=== PATIENT | male | born 1965 | race African-American/Black ===

== ENCOUNTER 2023-12-20 15:37 | Inpatient (IN) | payer MEDICAID, OTHER ==
[~2023-12-20] VITALS: Ht 182.9 cm; Wt 76.0 kg
[2023-12-20 16:32] LABS: Hematocrit 38.9 % (41.0-53.0); Hemoglobin 12.9 g/dL (13.5-17.5); Mean Corpuscular Hgb Conc. 33.2 g/dL (32.0-36.0); Mean Corpuscular Volume 81.3 fL (80.0-100.0); Red Blood Cells 4.78 10^6/uL (4.5-5.90); White Blood Cell 2.9 10^3/uL (4.4-10.8)
[2023-12-20 16:37] LABS: Red Cell Distribution Width 21.6 % (11.8-14.3)
[2023-12-20 16:38] LABS: Basophils % (manual) 0 (0.0-2.0); Blast Cells 0; Metamyelocytes % 0; Myelocytes % 0; Promyelocytes % 0; Reactive Lymphocytes 0
[2023-12-20 16:52] LABS: Chloride 106 mmol/L (98-107); Potassium 4.4 mmol/L (3.5-5.1); Sodium 139 mmol/L (136-145)
[2023-12-20 16:53] LABS: Anion Gap 7 (5-15); Calcium 9.8 mg/dL (8.7-10.4); Carbon Dioxide 26 mmol/L (20-30)
[2023-12-20] MEDS: ASPirin 81 mg TAB PO ONE (16:55)
[2023-12-20] MEDS: methylPREDNISolone SOD SUCC 125 MG/2 ML VL IV ONE (16:55)
[2023-12-20 16:58] LABS: BUN/Creatinine Ratio 20.9 (10.0-20.0); Blood Urea Nitrogen 23 mg/dL (9-23); Glucose 86 mg/dL (74-106)
[2023-12-20 19:23] LABS: Anisocytosis Slight; Band Neutrophils % (manual) 1; Eosinophils % (manual) 6 (0-7); Lymphocytes % (manual) 51 (10.0-50.0); Monocytes % (manual) 19 (0-12)
[2023-12-20 19:24] LABS: Large Platelets FEW; Macrocytosis Slight; Ovalocytes FEW; Platelet Estimate Adequa; Target Cell FEW
[2023-12-20] MEDS ORDERED: DOCUSATE SOD 100 MG CAP PO PRN (20:30)
[2023-12-20] MEDS ORDERED: ACETAMINOPHEN 325 MG TAB PO PRN (20:30)
[2023-12-20] MEDS ORDERED: ONDANSETRON HCL 4 MG/2 ML VIAL IV PRN (20:30)
[2023-12-20] MEDS ORDERED: MORPHINE SULFATE INJ 2 MG/ml SYRG IV PRN (22:00)
[2023-12-20] MEDS ORDERED: NITROGLYCERIN 0.4 MG SL TAB SL PRN (22:00)
[2023-12-20 23:45] VITALS: PULSE 72; RESP 18; O2SAT 99
[2023-12-21] MEDS: ATORVASTATIN 20 MG TAB PO SCH (00:12)
[2023-12-21] MEDS: HYDROcodone-ACET 5/325MG TAB PO PRN (00:12)
[2023-12-21] MEDS: methylPREDNISolone SOD SUCC 40 MG/ML VL IV SCH (00:12)
[2023-12-21] MEDS: FAMOTIDINE (10MG/ML) 2ML VL IV SCH (00:12)
[2023-12-21] MEDS: SODIUM CHLORIDE 0.9% 1,000 ML IV SCH (03:16)
[2023-12-21 05:37] LABS: Basophils # (auto) 0 10 ^3/uL (0-0.2); Basophils % (auto) 0.5 % (0.0-2.0); Eosinophils # (auto) 0 10 ^3/uL (0-0.8); Hematocrit 40.8 % (41.0-53.0); Hemoglobin 13.7 g/dL (13.5-17.5); Lymphocytes # (auto) 0.5 10 ^3/uL (0.4-5.4); Lymphocytes % (auto) 15.2 % (10.0-50.0); Mean Corpuscular Hemoglobin 27.4 pg (28.0-32.0); Mean Corpuscular Hgb Conc. 33.4 g/dL (32.0-36.0); Mean Corpuscular Volume 81.9 fL (80.0-100.0); Monocytes # (auto) 0.1 10 ^3/uL (0-1.3); Monocytes % (auto) 1.6 % (0.0-12.0); Neutrophils # (auto) 2.9 10 ^3/uL (1.6-8.6); Neutrophils % (auto) 82.7 % (37.0-80.0); Nucleated Red Blood Cells % 0.3 %; Red Blood Cells 4.99 10^6/uL (4.5-5.90); White Blood Cell 3.5 10^3/uL (4.4-10.8)
[2023-12-21 05:40] LABS: Alanine Aminotransferase 14 U/L (7-40); Albumin 4.1 g/dL (3.2-4.8); Alkaline Phosphatase 106 U/L (46-116); Anion Gap 8 (5-15); Aspartate Aminotransferase 13 U/L (13-40); BUN/Creatinine Ratio 18.8 (10.0-20.0); Blood Urea Nitrogen 24 mg/dL (9-23); Calcium 9.8 mg/dL (8.7-10.4); Carbon Dioxide 22 mmol/L (20-30); Chloride 106 mmol/L (98-107); Glucose 137 mg/dL (74-106); Potassium 4.6 mmol/L (3.5-5.1); Sodium 136 mmol/L (136-145)
[2023-12-21 05:41] LABS: Bilirubin, Total 0.2 mg/dL (0.2-1.0); Total Protein 8.2 g/dL (5.7-8.2)
[2023-12-21 06:02] LABS: Red Cell Distribution Width 21.9 % (11.8-14.3)
[2023-12-21 07:51] LABS: Anisocytosis Slight; Macrocytosis Slight; Ovalocytes FEW; Platelet Estimate Adequate
[2023-12-21 08:12] VITALS: PULSE 70; RESP 16; O2SAT 99
[2023-12-21] MEDS: ASPirin 81 mg TAB PO SCH (10:00)
[2023-12-21 12:21] LABS: CRP High Sensitivity 0.87 mg/dL (<1.0)
[2023-12-21 12:44] LABS: Erythrocyte Sedimentation Rate 25 mm/hr (0-20)
[2023-12-21] MEDS: IBUPROFEN 600 MG TAB PO SCH (15:59)
[2023-12-21] MEDS ORDERED: hydrALAZINE HCL 20 MG/ML VL IV PRN (17:00)
[2023-12-21] MEDS: NIFEdipine ER 30 MG TAB PO SCH (22:47)
[2023-12-22] VITALS (7 sets, daily range): BP systolic 123–137; BP diastolic 78–95; PULSE 68–74; RESP 17–20; TEMP 97.1–98.4; O2SAT 95–100
[2023-12-22 06:59] LABS: Calcium 9.6 mg/dL (8.7-10.4); Chloride 109 mmol/L (98-107); Sodium 139 mmol/L (136-145)
[2023-12-22 07:00] LABS: Anion Gap 8 (5-15); Carbon Dioxide 22 mmol/L (20-30)
[2023-12-22 07:05] LABS: BUN/Creatinine Ratio 19.8 (10.0-20.0); Basophils # (auto) 0 10 ^3/uL (0-0.2); Basophils % (auto) 0.1 % (0.0-2.0); Blood Urea Nitrogen 22 mg/dL (9-23); Eosinophils # (auto) 0 10 ^3/uL (0-0.8); Glucose 112 mg/dL (74-106); Hematocrit 41.1 % (41.0-53.0); Hemoglobin 13.8 g/dL (13.5-17.5); Lymphocytes # (auto) 0.6 10 ^3/uL (0.4-5.4); Mean Corpuscular Hemoglobin 27.5 pg (28.0-32.0); Mean Corpuscular Hgb Conc. 33.6 g/dL (32.0-36.0); Mean Corpuscular Volume 81.7 fL (80.0-100.0); Monocytes # (auto) 0.2 10 ^3/uL (0-1.3); Monocytes % (auto) 2.6 % (0.0-12.0); Neutrophils # (auto) 8.4 10 ^3/uL (1.6-8.6); Neutrophils % (auto) 91.3 % (37.0-80.0); Nucleated Red Blood Cells % 0.1 %; Red Blood Cells 5.03 10^6/uL (4.5-5.90); White Blood Cell 9.2 10^3/uL (4.4-10.8)
[2023-12-22 07:31] LABS: Red Cell Distribution Width 21.8 % (11.8-14.3)
[2023-12-22 07:46] LABS: Erythrocyte Sedimentation Rate 15 mm/hr (0-20)
[2023-12-22] MEDS: ASPirin 81 mg TAB PO SCH (08:44)
[2023-12-22] MEDS: ENOXAPARIN SOD 40 MG/0.4 ML SYRINGE SC SCH (08:45)
== END 2023-12-22 17:45 | disposition hospice, home (50) | DRG 346 ==
LOC: ER 15:37 → EDBD 15:37 → TELE 21:59 → TELE-WESTW 12-21 23:01
PROVIDERS: ADMIT Internal Medicine Geriatric Medicine; ATTEND Internal Medicine Geriatric Medicine
DX: M32.9 Systemic lupus erythematosus, unspecified (principal); H49.22 Sixth [abducent] nerve palsy, left eye; D72.819 Decreased white blood cell count, unspecified; Z51.5 Encounter for palliative care; E78.5 Hyperlipidemia, unspecified; F17.210 Nicotine dependence, cigarettes, uncomplicated; N18.2 Chronic kidney disease, stage 2 (mild); E03.8 Other specified hypothyroidism; I12.9 Hypertensive chronic kidney disease with stage 1 through stage 4 chronic kidney disease, or unspecified chronic kidney disease; M19.09 Primary osteoarthritis, other specified site; Z88.0 Allergy status to penicillin; Z86.73 Personal history of transient ischemic attack (TIA), and cerebral infarction without residual deficits
CPT/HCPCS: 36415; 71045; 80048; 80053; 80061; 83036; 84439; 84443; 84484; 85007; 85025; 85027; 85652; 86141; 86703; 87081; 93005; 93306; 96361; 96374; 96375; 99291; G0378; J3490

== ENCOUNTER 2024-02-28 18:54 | Inpatient (IN) | payer MEDICAID ==
[~2024-02-28] VITALS: Ht 162.6 cm; Wt 78.6 kg
[2024-02-28 19:39] LABS: Basophils # (auto) 0 10 ^3/uL (0-0.2); Eosinophils # (auto) 0.1 10 ^3/uL (0-0.8); Mean Corpuscular Hemoglobin 26.8 pg (28.0-32.0); Mean Corpuscular Hgb Conc. 33.3 g/dL (32.0-36.0); Monocytes # (auto) 0.8 10 ^3/uL (0-1.3); Neutrophils # (auto) 2.2 10 ^3/uL (1.6-8.6)
[2024-02-28 19:41] LABS: Basophils % (auto) 0.7 % (0.0-2.0); Eosinophils % (auto) 1.5 % (0.0-7.0); Hematocrit 33.5 % (41.0-53.0); Hemoglobin 11.2 g/dL (13.5-17.5); Lymphocytes # (auto) 1.9 10 ^3/uL (0.4-5.4); Lymphocytes % (auto) 38.5 % (10.0-50.0); Mean Corpuscular Volume 80.4 fL (80.0-100.0); Monocytes % (auto) 15.7 % (0.0-12.0); Neutrophils % (auto) 43.6 % (37.0-80.0); Nucleated Red Blood Cells % 0.3 %; Platelet Count (auto) 349 10^3/uL (140-450); Red Blood Cells 4.16 10^6/uL (4.5-5.90)
[2024-02-28 19:43] LABS: Red Cell Distribution Width 21.8 % (11.8-14.3)
[2024-02-28 19:46] LABS: Anion Gap 8 (5-15); Carbon Dioxide 25 mmol/L (20-30); Chloride 109 mmol/L (98-107); Sodium 142 mmol/L (136-145)
[2024-02-28 19:47] LABS: Calcium 9.5 mg/dL (8.7-10.4)
[2024-02-28 19:52] LABS: BUN/Creatinine Ratio 12.6 (10.0-20.0); Blood Urea Nitrogen 14 mg/dL (9-23); Glucose 92 mg/dL (74-106)
[2024-02-29] MEDS: methylPREDNISolone SOD SUCC 125 MG/2 ML VL IV ONE (00:45)
[2024-02-29] MEDS: MORPHINE SULFATE 4 MG/ML SYR/VIAL IV ONE (00:45)
[2024-02-29 00:46] VITALS: PULSE 75; RESP 18; O2SAT 97
[2024-02-29] MEDS: ONDANSETRON HCL 4 MG/2 ML VIAL IV ONE (00:46)
[2024-02-29] MEDS ORDERED: ACETAMINOPHEN 500 MG TAB PO PRN (06:00)
[2024-02-29] MEDS: PANTOPRAZOLE 40 MG/10 ML VIAL INJ IV SCH (06:15)
[2024-02-29] MEDS: ASPirin 81 mg TAB PO ONE (06:30)
[2024-02-29] MEDS: ATORVASTATIN 20 MG TAB PO ONE (06:30)
[2024-02-29 06:40] LABS: Basophils # (auto) 0 10 ^3/uL (0-0.2); Basophils % (auto) 0.5 % (0.0-2.0); Eosinophils # (auto) 0 10 ^3/uL (0-0.8); Hematocrit 34.5 % (41.0-53.0); Hemoglobin 11.6 g/dL (13.5-17.5); Lymphocytes # (auto) 0.5 10 ^3/uL (0.4-5.4); Lymphocytes % (auto) 10.2 % (10.0-50.0); Mean Corpuscular Hemoglobin 27.4 pg (28.0-32.0); Mean Corpuscular Hgb Conc. 33.5 g/dL (32.0-36.0); Mean Corpuscular Volume 81.8 fL (80.0-100.0); Monocytes # (auto) 0.1 10 ^3/uL (0-1.3); Monocytes % (auto) 1.7 % (0.0-12.0); Neutrophils # (auto) 4.5 10 ^3/uL (1.6-8.6); Neutrophils % (auto) 87.6 % (37.0-80.0); Nucleated Red Blood Cells % 0.3 %; Platelet Count (auto) 365 10^3/uL (140-450); Red Blood Cells 4.22 10^6/uL (4.5-5.90); Red Cell Distribution Width 21.6 % (11.8-14.3); White Blood Cell 5.2 10^3/uL (4.4-10.8)
[2024-02-29 06:44] LABS: Alanine Aminotransferase 25 U/L (7-40); Alkaline Phosphatase 122 U/L (46-116); Anion Gap 9 (5-15); Aspartate Aminotransferase 19 U/L (13-40); BUN/Creatinine Ratio 12.5 (10.0-20.0); Blood Urea Nitrogen 15 mg/dL (9-23); CRP High Sensitivity 0.36 mg/dL (<1.0); Calcium 9.4 mg/dL (8.7-10.4); Carbon Dioxide 23 mmol/L (20-30); Chloride 109 mmol/L (98-107); Glucose 141 mg/dL (74-106); Potassium 4.1 mmol/L (3.5-5.1); Sodium 141 mmol/L (136-145)
[2024-02-29 06:45] LABS: Bilirubin, Total 0.2 mg/dL (0.2-1.0); Total Protein 7.3 g/dL (5.7-8.2)
[2024-02-29 07:41] VITALS: PULSE 75; RESP 18; O2SAT 97
[2024-02-29 08:26] LABS: Erythrocyte Sedimentation Rate 18 mm/hr (0-20)
[2024-02-29] MEDS: NICOTINE 14 MG/24HR TOPICAL PATCH TD ONE (08:54)
[2024-02-29] MEDS: NICOTINE 14 MG/24HR TOPICAL PATCH TD SCH (08:54)
[2024-02-29] MEDS: HYDROcodone-ACET 5/325MG TAB PO PRN ×2 (08:55→21:20)
[2024-02-29 09:25] LABS: Urine Bacteria None Seen /hpf (None Seen)
[2024-02-29 10:05] LABS: Urine Blood Negative /uL (Negative); Urine Clarity Clear (Clear); Urine Color Yellow (Yellow); Urine Protein, UAD 1+ (Negative); Urine Specific Gravity 1.027 (1.001-1.035); Urine Urobilinogen 2 mg/dL (Negative); Urine WBC 1 /hpf (0 - 3); Urine pH 6.5 (5.0-9.0)
[2024-02-29 10:11] LABS: Amphetamine Screen, Urine Neg (NEGATIVE)
[2024-02-29 10:12] LABS: Barbiturate Scree,Urine Neg (NEGATIVE); Benzodiazephine Screen, Urine Neg (NEGATIVE); Cannabinoid Screen, Urine Pos (NEGATIVE); Cocaine Screen, Urine Neg (NEGATIVE); Opiate Scree,Urine Neg (NEGATIVE); Phencyclidine Screen, Urine Neg (NEGATIVE)
[2024-02-29] MEDS: predniSONE 5 MG TAB PO SCH (10:36)
[2024-02-29] MEDS: HYDROcodone-ACET 5/325MG TAB PO ONE (17:05)
[2024-02-29] MEDS: hydrOXYchloroQUINE SULFATE 200 MG TAB PO ONE (21:18)
[2024-02-29 21:37] VITALS: BP 123/67; PULSE 78; RESP 18; TEMP 97.9; O2SAT 97
[2024-02-29 22:20] VITALS: PULSE 76; RESP 18; O2SAT 99
[2024-02-29 22:30] VITALS: BP 123/67; PULSE 78; RESP 18; TEMP 97.8; O2SAT 97
[2024-02-29] MEDS ORDERED: PRED-1055 PO (22:39)
[2024-03-01] VITALS (8 sets, daily range): BP systolic 125–141; BP diastolic 64–87; PULSE 67–80; RESP 16–18; TEMP 97.3–98.4; O2SAT 0–99
[2024-03-01 07:36] LABS: Calcium 9.3 mg/dL (8.7-10.4); Chloride 109 mmol/L (98-107); Potassium 4.1 mmol/L (3.5-5.1); Sodium 141 mmol/L (136-145)
[2024-03-01 07:37] LABS: Anion Gap 8 (5-15); Carbon Dioxide 24 mmol/L (20-30)
[2024-03-01 07:42] LABS: BUN/Creatinine Ratio 12.2 (10.0-20.0); Blood Urea Nitrogen 12 mg/dL (9-23); Glucose 82 mg/dL (74-106)
[2024-03-01 08:01] LABS: Basophils # (auto) 0.1 10 ^3/uL (0-0.2); Eosinophils # (auto) 0 10 ^3/uL (0-0.8); Eosinophils % (auto) 0.3 % (0.0-7.0); Hematocrit 36.4 % (41.0-53.0); Lymphocytes # (auto) 2.4 10 ^3/uL (0.4-5.4); Mean Corpuscular Hemoglobin 26.7 pg (28.0-32.0); Nucleated Red Blood Cells % 0.4 %
[2024-03-01 08:03] LABS: Basophils % (auto) 0.8 % (0.0-2.0); Lymphocytes % (auto) 20.2 % (10.0-50.0); Mean Corpuscular Hgb Conc. 32.9 g/dL (32.0-36.0); Mean Corpuscular Volume 81.3 fL (80.0-100.0); Monocytes # (auto) 0.9 10 ^3/uL (0-1.3); Monocytes % (auto) 7.7 % (0.0-12.0); Neutrophils # (auto) 8.5 10 ^3/uL (1.6-8.6); Platelet Count (auto) 405 10^3/uL (140-450); Red Blood Cells 4.47 10^6/uL (4.5-5.90)
[2024-03-01 08:09] LABS: Red Cell Distribution Width 21.7 % (11.8-14.3)
[2024-03-01] MEDS: hydrOXYchloroQUINE SULFATE 200 MG TAB PO SCH (11:34)
[2024-03-01] MEDS ORDERED: GABA-1250 PO (11:50)
[2024-03-01] MEDS ORDERED: HYDR200T36 PO (11:50)
[2024-03-02] VITALS (7 sets, daily range): BP systolic 114–138; BP diastolic 74–94; PULSE 67–72; RESP 18–20; TEMP 97.7–98.7; O2SAT 97–100
== END 2024-03-02 19:50 | disposition hospice, home (50) | DRG 346 ==
LOC: ER 18:54 → EDBD 18:54 → OVERFLOW 02-29 06:10 → WEST WING 02-29 21:38
PROVIDERS: ADMIT Internal Medicine; ATTEND Emergency Medicine
DX: M32.9 Systemic lupus erythematosus, unspecified (principal); R56.9 Unspecified convulsions; I69.354 Hemiplegia and hemiparesis following cerebral infarction affecting left non-dominant side; I12.9 Hypertensive chronic kidney disease with stage 1 through stage 4 chronic kidney disease, or unspecified chronic kidney disease; N18.2 Chronic kidney disease, stage 2 (mild); D64.9 Anemia, unspecified; F17.210 Nicotine dependence, cigarettes, uncomplicated; F12.10 Cannabis abuse, uncomplicated; N39.0 Urinary tract infection, site not specified; Z88.0 Allergy status to penicillin; Z88.8 Allergy status to other drugs, medicaments and biological substances
CPT/HCPCS: 36415; 71045; 80048; 80053; 80307; 81001; 82270; 82306; 82607; 83880; 84484; 85025; 85652; 86141; 87086; 93005; 96374; 96375; G0378; J2405; J2470